=== PATIENT | female | born 1990 | race Caucasian/White ===

== ENCOUNTER → 2021-02-02 | Outpatient (REF) | payer OTHER ==
[2021-02-02 10:26] LABS: HEMATOCRIT 40.2 % (36.0-47.0); MEAN CORPUSCULAR HEMOGLOBIN 30.2 pg (27.0-33.0); MEAN CORPUSCULAR HGB CONC 32.3 g/dl (32.0-36.5); MEAN CORPUSCULAR VOLUME 93.3 fl (80.0-96.0); PLATELET COUNT, AUTOMATED 188 10^3/uL (150-450); RED BLOOD COUNT 4.31 10^6/uL (4.00-5.40)
[2021-02-02 10:51] LABS: ALBUMIN 4.1 GM/DL (3.2-5.2); ALT/SGPT 23 U/L (12-78); BILIRUBIN,TOTAL 0.5 MG/DL (0.2-1.0); BLOOD UREA NITROGEN 16 MG/DL (7-18); CALCIUM LEVEL 8.8 MG/DL (8.5-10.1); CARBON DIOXIDE LEVEL 30 MEQ/L (21-32); CHLORIDE LEVEL 107 MEQ/L (98-107); CHOLESTEROL LEVEL 145 MG/DL (<200); CHOLESTEROL RISK RATIO 2.132 (<5); FREE T4 0.71 NG/DL (0.76-1.46); GLOMERULAR FILTRATION RATE > 60.0 (>60); GLUCOSE, FASTING 89 MG/DL (70-100); HDL CHOLESTEROL 68 MG/DL (>40); LDL CHOLESTEROL 65 MG/DL (<100); NON-HDL-C 77 MG/DL; POTASSIUM SERUM 4.6 MEQ/L (3.5-5.1); SODIUM LEVEL 140 MEQ/L (136-145); TOTAL PROTEIN 7.2 GM/DL (6.4-8.2); TRIGLYCERIDES LEVEL 58 MG/DL (<150)
[2021-02-02 11:02] LABS: TOTAL 25(OH) VITAMIN D 35.2 NG/ML (30.0-100.0)
== END ==
LOC: M SFHCPLAZ 08:36
PROVIDERS: ATTEND Nurse Practitioner Family
DX: N97.9 Female infertility, unspecified (principal); Z83.3 Family history of diabetes mellitus; Z13.220 Encounter for screening for lipoid disorders; Z13.21 Encounter for screening for nutritional disorder

== ENCOUNTER → 2021-03-18 | Outpatient (REF) | payer OTHER ==
[2021-03-18 13:40] LABS: HEMATOCRIT 37.3 % (36.0-47.0); HEMOGLOBIN 12.5 g/dl (12.0-15.5); MEAN CORPUSCULAR HEMOGLOBIN 31.1 pg (27.0-33.0); MEAN CORPUSCULAR HGB CONC 33.5 g/dl (32.0-36.5); MEAN CORPUSCULAR VOLUME 92.8 fl (80.0-96.0); PLATELET COUNT, AUTOMATED 228 10^3/uL (150-450); RED BLOOD COUNT 4.02 10^6/uL (4.00-5.40); WHITE BLOOD COUNT 6.7 10^3/uL (4.0-10.0)
[2021-03-18 14:59] LABS: HIV 1&2 SCREEN CENTAUR NEGATIVE (NEGATIVE)
== END ==
LOC: M PLALAB 10:35
PROVIDERS: ATTEND Advanced Practice Midwife
DX: Z34.81 Encounter for supervision of other normal pregnancy, first trimester (principal)
CPT/HCPCS: 36415; 85027; 86762; 86780; 86803; 86850; 86900; 86901; 87086; 87340; 87389; 87490; 87590; G0463

== ENCOUNTER → 2021-03-27 | Outpatient (CLI) | payer OTHER | LOC: M PLALAB 15:10 | PROVIDERS: ATTEND Advanced Practice Midwife | DX: Z34.82 Encounter for supervision of other normal pregnancy, second trimester (principal); Z3A.00 Weeks of gestation of pregnancy not specified ==

== ENCOUNTER → 2021-06-09 | Outpatient (CLI) | payer OTHER ==
--- NOTE | 2021-06-09 10:40 | REP ---
INDICATION: ANATOMY. COMPARISON: None. TECHNIQUE: Transabdominal obstetric sonography. FINDINGS: Scanning through the gravid uterus demonstrates a viable single intrauterine gestation in cephalic lie. motion is observed and heart rate is recorded at 158 beats per minute. A anterior placenta is seen, grade 0, without evidence of placenta previa. Closed cervical length is measured at 5.0 cm transabdominally. No extrauterine abnormality is observed. Amniotic fluid is subjectively normal. No anomaly is seen. The following anatomic structures are identified and felt to be sonographically unremarkable: cranium, choroid plexus, cavum, cerebellum and posterior fossa, face and profile, lungs, four-chamber heart with left and right ventricular outflow tract views, diaphragm, left-sided stomach, abdominal wall cord insertion, three-vessel umbilical cord, kidneys and bladder, spine, and upper and lower extremities. Biometry chart: BPD 4.7 cm, 20 weeks 1 day Head circumference 18.0 cm, 20 weeks 3 days Abdominal circumference 15.7 cm, 20 weeks 6 days Femur length 3.2 cm, 20 weeks 0 days Humeral length 3.2 cm, 20 weeks 6 days HC AC ratio normal 1.14 Cephalic index normal 0.71 Estimated weight 355 g, 0 lb 12 oz, 32nd percentile for 20 weeks 5 days IMPRESSION: Viable single intrauterine gestation at 20 weeks 3 days by today's composite sonographic criteria. ANABEL by today's sonography October 24, 2021. No complication identified. Expected gestational age estimate from known ANABEL of October 22, 2021 is 20 weeks 5 days. anatomic survey is felt to be complete. <Electronically signed by Devin Chang > 06/09/21 [id number]
== END ==
LOC: M WHC 07:16
PROVIDERS: ATTEND Advanced Practice Midwife
DX: Z36.89 Encounter for other specified antenatal screening (principal); Z3A.16 16 weeks gestation of pregnancy

== ENCOUNTER → 2021-07-29 | Outpatient (CLI) | payer OTHER ==
[2021-07-29 15:25] LABS: HEMATOCRIT 34.7 % (36.0-47.0); HEMOGLOBIN 11.5 g/dl (12.0-15.5); MEAN CORPUSCULAR HEMOGLOBIN 30.7 pg (27.0-33.0); MEAN CORPUSCULAR HGB CONC 33.1 g/dl (32.0-36.5); MEAN CORPUSCULAR VOLUME 92.8 fl (80.0-96.0); PLATELET COUNT, AUTOMATED 177 10^3/uL (150-450); RED BLOOD COUNT 3.74 10^6/uL (4.00-5.40); WHITE BLOOD COUNT 8.1 10^3/uL (4.0-10.0)
[2021-07-29 21:36] LABS: GC DNA AMPLIFICATION NEGATIVE (NEGATIVE)
== END ==
LOC: M PLALAB 10:56
PROVIDERS: ATTEND Advanced Practice Midwife
DX: Z36.89 Encounter for other specified antenatal screening (principal); Z3A.25 25 weeks gestation of pregnancy

== ENCOUNTER → 2021-09-25 | Outpatient (REF) | payer OTHER | LOC: M SFHCWAGY 16:46 | PROVIDERS: ATTEND Advanced Practice Midwife | DX: Z34.83 Encounter for supervision of other normal pregnancy, third trimester (principal) ==

== ENCOUNTER 2021-10-24 09:49 | Inpatient (IN) | payer OTHER ==
[~2021-10-24] VITALS: Ht 172.7 cm; Wt 81.6 kg
[2021-10-24] VITALS (12 sets, daily range): BP systolic 116–136; BP diastolic 68–92
--- NOTE | 2021-10-24 10:12 | HPEPDOC ---
Obstetrical History & Physical General Date of Admission Oct 24, 2021 at 09:49 History of Present Illness 31-year-old 2 para 1-0-0-1 female at 40-2/7 weeks gestation by LMP consistent with 8-week ultrasound (EDC equals 10/22/2021) presents for induction of labor. She has occasional contractions. There is no vaginal bleeding. Good movement. Information Provided By: Patient Age: 31 : 2 Term: 1 Pre-term: 0 Abortions: 0 Livin Care Care: Good Care Dating Final EDC: Oct 22, 2021 Final EDC by: LMP, 1st trimester (US) Past Medical History Past Obstetrical History : Past Obstetrical History: Multigravida Past Medical History Medical History Ob hx: 1 08/27/2018 40.4 8 3.5 Female Epi. [place] No Borderline GHTN, Induced me hx: none surgical hx: none Surgical History: Denies/None Family History Significant Family History: No pertinent family hx Social History Marital Status: Family situation: Spouse/partner home Psychosocial History: No pertinent psych hx * Smoker: non-smoker Physical Examination Physical Examination GENERAL: Alert and oriented times three. BREAST: . ABDOMEN: Gravid and non-tender to touch. FETUS: Is vertex (VTX) by sterile vaginal examination (SVE), fetus is vertex (VTX) by Hussein. HEART RATE: Regular rate and rhythm. LUNGS: Clear to auscultation (CTA). EXTREMITIES: No edema. No clonus. Deep tendon reflexes (DTRs) + . Laboratory Data 24H LABS Laboratory Tests 2 10/24/21 10:03: Serology Scanned Report Hepatitis B Testing Pertinent Laboratoy Data Blood Type: A+ Group B Streptococcus: Negative Vaginal Examination Dilation: 2cm Effacement: 50% Station: -2 Cervical Consistency: Medium Cervical Position: Posterior Presentation: Cephalic presentation Assessment Variability: Moderate Accelerations: Positive Decelerations: None Tocometer Frequency: irregular Assessment/Plan Assessment 31-year-old 2 para 1-0-0-1 female at 40-2/7 weeks gestation by LMP consistent with 8-week ultrasound (EDC equals 10/22/2021) presents for labor induction Plan Admit and orient. Remotely Operated Vehicle and consent. Diet: Regular. Group B Streptococcus (GBS) negative. Labs and intravenous (IV) per unit protocol.. Anticipate normal spontaneous delivery (). C-S as appropriate. KATERINA BARRAZA MD Oct 24, 2021 10:12
[2021-10-24 11:21] LABS: HEMATOCRIT 34.7 % (36.0-47.0); HEMOGLOBIN 11.2 g/dl (12.0-15.5); MEAN CORPUSCULAR HGB CONC 32.3 g/dl (32.0-36.5); MEAN CORPUSCULAR VOLUME 89.9 fl (80.0-96.0); PLATELET COUNT, AUTOMATED 169 10^3/uL (150-450); RED BLOOD COUNT 3.86 10^6/uL (4.00-5.40); WHITE BLOOD COUNT 6.8 10^3/uL (4.0-10.0)
[2021-10-24] MEDS ORDERED: ZYRTTAB8 PO (11:31)
[2021-10-24] MEDS ORDERED: PRENTAB9 PO (11:31)
[2021-10-24] MEDS ORDERED: TUMS500C PO (11:31)
[2021-10-24] MEDS: miSOPROStol 50MCG 1/2 TABLET SL SCH ×3 (11:56→20:52)
[2021-10-25] VITALS (38 sets, daily range): BP systolic 109–145; BP diastolic 57–100
[2021-10-25] MEDS ORDERED: OXYTOCIN DRIP 30 UNITS in IV 1 EA IV SCH (00:35)
[2021-10-25] MEDS: LR 1,000 ML IV SCH ×3 (02:48→10:44)
[2021-10-25] MEDS ORDERED: FENTANYL 2MCG/ML ROPIVACAINE 0.2% IN 0.9% NACL 100ML IVBAG As Ordered ONE (08:26)
[2021-10-25] MEDS ORDERED: ONDANSETRON 4MG/2ML VIAL IV PRN ×2 (08:30→12:15)
[2021-10-25] MEDS ORDERED: REFRIGERATOR IV KEYS XX PRN (08:30)
[2021-10-25] MEDS ORDERED: FENTANYL/ROPIVACAINE/NACL BAG 100 ML EPIDURAL SCH (08:30)
[2021-10-25] MEDS ORDERED: diphenhydrAMINE 50MG/ML VIAL (J1200) IV PRN (08:30)
[2021-10-25] MEDS ORDERED: EPIDURAL COMMENT XX SCH (08:30)
[2021-10-25] MEDS ORDERED: NALOXONE INJ 0.4MG/1ML VIAL (J2310 PER 1MG) IV PRN (08:30)
[2021-10-25] MEDS ORDERED: EPIDURAL/PCA KEYS XX PRN (08:30)
[2021-10-25] MEDS: PRENATAL VITAMINS CHEWABLE TABLET PO SCH (09:00)
[2021-10-25] MEDS ORDERED: LACTATED RINGER'S 1000 ML IV PRN (09:10)
[2021-10-25] MEDS ORDERED: ePHEDrine SULFATE 25 MG/5 ML(5MG/ML) SYRINGE IV PRN (09:10)
[2021-10-25] MEDS ORDERED: METHYLERGONOVINE MALEATE 0.2 MG TAB PO PRN (12:15)
[2021-10-25] MEDS ORDERED: ACETAMINOPHEN 500 MG TAB PO PRN (12:15)
[2021-10-25] MEDS ORDERED: DIBUCAINE 1% OINTMENT 30GM TOP PRN (12:15)
[2021-10-25] MEDS ORDERED: IBUPROFEN 600MG TAB PO PRN (12:15)
[2021-10-25] MEDS ORDERED: RHOGAM 300 MCG (1500 IU) INJ (J2790) IM SCH (12:15)
[2021-10-25] MEDS ORDERED: MEASLES,MUMPS,RUBELLA VACCINE INJ (MMR-II) (90707) SC SCH (12:15)
[2021-10-25] MEDS ORDERED: DOCUSATE SODIUM 100MG CAPSULE PO PRN (12:15)
[2021-10-25] MEDS ORDERED: ACETAMINOPHEN TAB 650MG DOSE (2X325MG) PO PRN (12:15)
[2021-10-25] MEDS ORDERED: IBUPROFEN 800 MG TAB PO PRN (12:15)
[2021-10-25] MEDS ORDERED: OXYTOCIN DRIP 30 UNITS in IV 1 EA IV ONE (12:15)
--- NOTE | 2021-10-25 12:21 | DNPDOC ---
[facility] Delivery Note Delivery Note DATE OF DELIVERY: October 25, 2021 PREDELIVERY DIAGNOSIS: 40-2/7 weeks' gestation, induction of labor POST DELIVERY DIAGNOSIS: Delivered. PROCEDURE: Spontaneous vaginal delivery. REHABILITATION ASSISTANT: Dr. Katerina Barraza MD ANESTHESIA: epidural. ESTIMATED BLOOD LOSS: 300 mL. FINDINGS: 8 pound 13 ounce male , Score 9/9, nuchal cord times 1. DELIVERY SUMMARY: Patient is a 31-year-old 2 now para 2 who was admitted to labor and delivery for labor induction PT received 3 doses of Misoprostol. She was then started on Pitocin. She had Spontaneous rupture of membranes .After a 30 minute second stage of labor she had a spontaneous vaginal delivery of a 8 lb 13 oz. male infant. Nuchal cord x 1 reduced. Shoulders delivered with ease. Infant handed to mother, cried quickly. Placenta delivered spontaneously and appeared intact. A small second degree laceration was repaired with 2-O Chromic in the usual fashion. Sponge and needle counts correct. KATERINA BARRAZA MD Oct 25, 2021 12:21
[2021-10-25] MEDS ORDERED: SLF 3 ML SYR IV PRN (15:35)
[2021-10-25] MEDS: SLF 3 ML SYR IV SCH (22:41)
[2021-10-26 06:00] VITALS: BP 115/69
[2021-10-26] MEDS: SLF 3 ML SYR IV SCH (06:25)
[2021-10-26] MEDS: PRENATAL VITAMINS CHEWABLE TABLET PO SCH (11:31)
[2021-10-26] MEDS ORDERED: IBUP80TA PO (12:00)
[2021-10-26] MEDS ORDERED: ACET-683 PO (12:00)
== END 2021-10-26 14:30 | disposition home or self-care (01) | DRG 807 ==
LOC: M LDI 09:49 → M OBS 10-25 15:20
PROVIDERS: ADMIT Specialist; ATTEND Specialist
PROC: 10E0XZZ Delivery of Products of Conception, External Approach (ICD-10-PCS; principal; 2021-10-25)
PROC: 0KQM0ZZ Repair Perineum Muscle, Open Approach (ICD-10-PCS; 2021-10-25)
PROC: 3E0P7GC Introduction of Other Therapeutic Substance into Female Reproductive, Via Natural or Artificial Opening (ICD-10-PCS; 2021-10-25)
DX: O48.0 Post-term pregnancy (principal); Z37.0 Single live birth; Z3A.40 40 weeks gestation of pregnancy; O69.81X0 Labor and delivery complicated by cord around neck, without compression, not applicable or unspecified; O70.1 Second degree perineal laceration during delivery